=== PATIENT | male | born 1965 | race Two or more races ===

== ENCOUNTER 2021-04-25 09:57 | Emergency (ER) | payer BC, OTHER ==
[~2021-04-25] VITALS: Ht 170.2 cm; Wt 167.4 kg
[2021-04-25] MEDS ORDERED: cloNIDine HCL 0.1 MG TAB PO ONE (10:30)
[2021-04-25] MEDS ORDERED: LORazepam 0.5 MG TAB PO ONE (10:30)
[2021-04-25 10:55] LABS: Basophils # (auto) 0 10 ^3/uL (0-0.2); Basophils % (auto) 0.5 % (0.0-2.0); Eosinophils # (auto) 0.1 10 ^3/uL (0-0.8); Eosinophils % (auto) 1.6 % (0.0-7.0); Hematocrit 45.8 % (41.0-53.0); Hemoglobin 16.1 g/dL (13.5-17.5); Lymphocytes % (auto) 30.1 % (10.0-50.0); Mean Corpuscular Hemoglobin 33.6 pg (28.0-32.0); Mean Corpuscular Hgb Conc. 35.1 g/dL (32.0-36.0); Mean Corpuscular Volume 95.6 fL (80.0-100.0); Monocytes # (auto) 0.6 10 ^3/uL (0-1.3); Monocytes % (auto) 9.5 % (0.0-12.0); Neutrophils # (auto) 3.8 10 ^3/uL (1.6-8.6); Neutrophils % (auto) 58.3 % (37.0-80.0); Nucleated Red Blood Cells % 0.1 %; Red Blood Cells 4.79 10^6/uL (4.5-5.90); Red Cell Distribution Width 14.5 % (11.8-14.3); White Blood Cell 6.5 10^3/uL (4.4-10.8)
[2021-04-25 11:17] LABS: Albumin 3.5 g/dL (3.4-5.0); Calcium 8.2 mg/dL (8.5-10.1); Potassium 3.9 mmol/L (3.5-5.1)
[2021-04-25 11:27] LABS: BUN/Creatinine Ratio 14.1; Bilirubin, Total 0.5 mg/dL (0.2-1.0)
[2021-04-25 14:49] LABS: Urine Bacteria NONE SEEN /hpf (None Seen); Urine Blood Negative /uL (Negative); Urine Mucus FEW (None Seen); Urine WBC 1 /hpf (0 - 3)
[2021-04-25 16:45] VITALS: BP 106/52
== END 2021-04-25 16:46 | disposition home or self-care (01) ==
LOC: ER 09:57
DX: R07.89 Other chest pain (principal); F41.9 Anxiety disorder, unspecified; I10 Essential (primary) hypertension
CPT/HCPCS: 36415; 71045; 80053; 81001; 83880; 84484; 85025; 93005

== ENCOUNTER 2021-10-08 11:10 | Inpatient (IN) | payer BC ==
[~2021-10-08] VITALS: Ht 170.2 cm; Wt 164.2 kg
[2021-10-08 12:21] LABS: Eosinophils # (auto) 0.1 10 ^3/uL (0-0.8); Mean Corpuscular Hemoglobin 35.1 pg (28.0-32.0); Monocytes # (auto) 0.8 10 ^3/uL (0-1.3); White Blood Cell 8.1 10^3/uL (4.4-10.8)
[2021-10-08 12:22] LABS: Basophils # (auto) 0.2 10 ^3/uL (0-0.2); Eosinophils % (auto) 1.7 % (0.0-7.0); Hemoglobin 16.8 g/dL (13.5-17.5); Lymphocytes # (auto) 1.8 10 ^3/uL (0.4-5.4); Lymphocytes % (auto) 22.3 % (10.0-50.0); Mean Corpuscular Volume 100.3 fL (80.0-100.0); Monocytes % (auto) 9.8 % (0.0-12.0); Neutrophils # (auto) 5.2 10 ^3/uL (1.6-8.6); Neutrophils % (auto) 64.2 % (37.0-80.0); Nucleated Red Blood Cells % 0.1 %; Red Blood Cells 4.79 10^6/uL (4.5-5.90); Red Cell Distribution Width 14.2 % (11.8-14.3)
[2021-10-08 12:25] LABS: Urine Bacteria NONE SEEN /hpf (None Seen); Urine Blood Negative /uL (Negative); Urine Mucus FEW (None Seen); Urine Specific Gravity 1.028 (1.001-1.035); Urine WBC 2 /hpf (0 - 3)
[2021-10-08 13:07] LABS: Albumin 3.7 g/dL (3.4-5.0); BUN/Creatinine Ratio 10.4; Bilirubin, Total 0.8 mg/dL (0.2-1.0); Calcium 8.7 mg/dL (8.5-10.1); Potassium 3.9 mmol/L (3.5-5.1); Total Protein 7.3 g/dL (6.4-8.2)
[2021-10-08] MEDS ORDERED: SODIUM CHLORIDE 0.9% 1,000 ML IV ONE ×2 (13:30→15:45)
[2021-10-08] MEDS ORDERED: SODIUM CHLORIDE 0.9% 500 ML IVB ONE ×2 (13:30→15:45)
[2021-10-08 13:56] LABS: Magnesium 2.5 mg/dL (1.6-2.6)
[2021-10-08] MEDS ORDERED: IOHEXOL 300 MG/ML 100ML BOTTLE IJ ONE (14:53)
[2021-10-08] MEDS ORDERED: MORPHINE SULFATE INJ 2 MG/ml SYRG IV ONE (16:15)
[2021-10-08] MEDS ORDERED: METOCLOPRAMIDE HCL 5MG/ml INJ 2ml VIAL IV ONE (16:15)
[2021-10-08] MEDS ORDERED: LACTATED RINGER'S 1,000 ML IV ONE (17:45)
[2021-10-08] MEDS ORDERED: NITROGLYCERIN 0.4 MG SL TAB SL PRN (17:45)
[2021-10-08] MEDS ORDERED: MORPHINE SULFATE INJ 2 MG/ml SYRG IV PRN ×2 (17:45→22:30)
[2021-10-08] MEDS ORDERED: HYDROcodone-ACET 5/325MG TAB PO PRN (22:30)
[2021-10-08] MEDS ORDERED: ONDANSETRON HCL 4 MG/2 ML VIAL IV PRN (22:30)
[2021-10-08] MEDS ORDERED: LORazepam 2MG/ML-1ML VIAL IV PRN (22:30)
[2021-10-08] MEDS ORDERED: hydrALAZINE HCL 20 MG/ML VL IV PRN (22:30)
[2021-10-08] MEDS ORDERED: DOCUSATE SOD 100 MG CAP PO PRN (22:30)
[2021-10-08] MEDS ORDERED: SODIUM CHLORIDE 0.9% 1,000 ML IV SCH (22:30)
[2021-10-08] MEDS ORDERED: PANTOPRAZOLE 40 MG/10 ML VIAL INJ IV ONE (22:30)
[2021-10-08] MEDS ORDERED: LORazepam 0.5 MG TAB PO PRN (22:30)
[2021-10-08] MEDS ORDERED: THIAMINE 100mg/ml INJ (200mg/2ml VIAL) IV ONE (22:30)
[2021-10-09] VITALS (9 sets, daily range): BP systolic 129–154; BP diastolic 73–90
[2021-10-09 00:54] LABS: INR 1.04 (0.9-1.15); Partial Thromboplastin Time 27.4 sec (23.6-33.0)
[2021-10-09 07:26] LABS: Basophils # (auto) 0 10 ^3/uL (0-0.2); Basophils % (auto) 0.4 % (0.0-2.0); Eosinophils # (auto) 0.1 10 ^3/uL (0-0.8); Eosinophils % (auto) 1.6 % (0.0-7.0); Hemoglobin 15.5 g/dL (13.5-17.5); Mean Corpuscular Hgb Conc. 35.3 g/dL (32.0-36.0); Red Blood Cells 4.34 10^6/uL (4.5-5.90)
[2021-10-09 07:28] LABS: Hematocrit 43.8 % (41.0-53.0); Lymphocytes # (auto) 1.9 10 ^3/uL (0.4-5.4); Lymphocytes % (auto) 33.1 % (10.0-50.0); Mean Corpuscular Hemoglobin 35.6 pg (28.0-32.0); Monocytes # (auto) 0.7 10 ^3/uL (0-1.3); Monocytes % (auto) 11.8 % (0.0-12.0); Neutrophils # (auto) 3.1 10 ^3/uL (1.6-8.6); Neutrophils % (auto) 53.1 % (37.0-80.0); Nucleated Red Blood Cells % 0.1 %; Red Cell Distribution Width 14.2 % (11.8-14.3); White Blood Cell 5.8 10^3/uL (4.4-10.8)
[2021-10-09 07:36] LABS: INR 1.01 (0.9-1.15); Partial Thromboplastin Time 27.2 sec (23.6-33.0)
[2021-10-09 08:48] LABS: Potassium 3.9 mmol/L (3.5-5.1)
[2021-10-09 09:05] LABS: Albumin 3.2 g/dL (3.4-5.0); Bilirubin, Total 1.3 mg/dL (0.2-1.0); CRP High Sensitivity 0.25 mg/dL (< 0.3); Calcium 8.2 mg/dL (8.5-10.1); Magnesium 2.2 mg/dL (1.6-2.6); Phosphorus 3.3 mg/dL (2.5-4.90); Total Protein 6.4 g/dL (6.4-8.2); Uric Acid 6.6 mg/dL (3.5-7.2)
[2021-10-09 09:13] LABS: Thyroid Stimulating Hormone 3.02 uIU/mL (0.358-3.74)
[2021-10-09] MEDS: FOLIC ACID 1 MG TAB PO SCH (10:13)
[2021-10-09] MEDS: MULTIPLE VITAMINS W/ MINERALS TAB PO SCH (10:13)
[2021-10-09] MEDS: THIAMINE HCL 100 MG TAB PO SCH (10:13)
[2021-10-09] MEDS: PANTOPRAZOLE 40 MG/10 ML VIAL INJ IV SCH (10:13)
[2021-10-09] MEDS: ENOXAPARIN SOD 40 MG/0.4 ML SYRINGE SC SCH (10:14)
[2021-10-09] MEDS: SODIUM CHLORIDE 0.9% 1,000 ML IV SCH (15:56)
[2021-10-09] MEDS ORDERED: TAMSULOSIN HYDROCHLORIDE 0.4 MG CAP PO SCH (18:00)
[2021-10-10 05:31] VITALS: BP 137/77
[2021-10-10 05:37] LABS: Magnesium 2.2 mg/dL (1.6-2.6); Potassium 3.8 mmol/L (3.5-5.1)
[2021-10-10 09:00] VITALS: BP 110/67
[2021-10-10] MEDS: PANTOPRAZOLE 40 MG/10 ML VIAL INJ IV SCH (09:53)
[2021-10-10] MEDS: THIAMINE HCL 100 MG TAB PO SCH (09:53)
[2021-10-10] MEDS: FOLIC ACID 1 MG TAB PO SCH (09:53)
[2021-10-10] MEDS: SODIUM CHLORIDE 0.9% 1,000 ML IV SCH (09:54)
[2021-10-10] MEDS: ENOXAPARIN SOD 40 MG/0.4 ML SYRINGE SC SCH (09:54)
[2021-10-10] MEDS: MULTIPLE VITAMINS W/ MINERALS TAB PO SCH (09:54)
[2021-10-10 13:00] VITALS: BP 134/88
== END 2021-10-10 15:39 | disposition home or self-care (01) | DRG 439 ==
LOC: ER 11:10 → OVERFLOW 17:37 → WEST WING 22:52
PROVIDERS: ADMIT Hospitalist; ATTEND Internal Medicine
PROC: 5A09357 Assistance with Respiratory Ventilation, Less than 24 Consecutive Hours, Continuous Positive Airway Pressure (ICD-10-PCS; principal; 2021-10-09)
DX: K85.20 Alcohol induced acute pancreatitis without necrosis or infection (principal); Z68.43 Body mass index [BMI] 50.0-59.9, adult; K42.9 Umbilical hernia without obstruction or gangrene; K76.0 Fatty (change of) liver, not elsewhere classified; F10.10 Alcohol abuse, uncomplicated; D75.89 Other specified diseases of blood and blood-forming organs; I10 Essential (primary) hypertension; Z20.822 Contact with and (suspected) exposure to COVID-19; E66.01 Morbid (severe) obesity due to excess calories; E78.5 Hyperlipidemia, unspecified; K21.9 Gastro-esophageal reflux disease without esophagitis; N40.0 Benign prostatic hyperplasia without lower urinary tract symptoms; K29.70 Gastritis, unspecified, without bleeding; K70.9 Alcoholic liver disease, unspecified; Z79.899 Other long term (current) drug therapy
CPT/HCPCS: 36415; 71046; 74177; 76705; 80053; 80061; 81001; 82150; 82247; 82550; 82728; 83036; 83615; 83690; 83735; 83880; 84100; 84132; 84439; 84443; 84484; 84550; 85025; 85379; 85610; 85652; 85730; 86141; 87040; 87086; 93005; 94660; 96360; 96361; C9113; G0378

== ENCOUNTER 2022-12-25 09:15 | Emergency (ER) | payer BC ==
[~2022-12-25] VITALS: Ht 167.6 cm; Wt 158.9 kg
[2022-12-25 10:09] VITALS: BP 115/102; PULSE 78; RESP 18; O2SAT 98
[2022-12-25] MEDS ORDERED: ACETAMINOPHEN 500 MG TAB PO ONE (10:15)
== END 2022-12-25 11:43 | disposition home or self-care (01) ==
LOC: ER 09:15
DX: M23.8X2 Other internal derangements of left knee (principal); M24.172 Other articular cartilage disorders, left ankle; F41.9 Anxiety disorder, unspecified; M19.90 Unspecified osteoarthritis, unspecified site; I10 Essential (primary) hypertension; F10.90 Alcohol use, unspecified, uncomplicated; Y90.0 Blood alcohol level of less than 20 mg/100 ml
CPT/HCPCS: 73700

== ENCOUNTER 2023-12-04 21:39 | Inpatient (IN) | payer BC ==
[~2023-12-04] VITALS: Ht 165.1 cm; Wt 155.0 kg
[2023-12-04 22:02] LABS: Basophils # (auto) 0.1 10 ^3/uL (0-0.2); Basophils % (auto) 1.2 % (0.0-2.0); Eosinophils # (auto) 0.1 10 ^3/uL (0-0.8); Hematocrit 48.7 % (41.0-53.0); Hemoglobin 17.3 g/dL (13.5-17.5); Lymphocytes # (auto) 2.7 10 ^3/uL (0.4-5.4); Lymphocytes % (auto) 25.6 % (10.0-50.0); Mean Corpuscular Hemoglobin 36.1 pg (28.0-32.0); Mean Corpuscular Hgb Conc. 35.5 g/dL (32.0-36.0); Mean Corpuscular Volume 101.7 fL (80.0-100.0); Monocytes # (auto) 0.9 10 ^3/uL (0-1.3); Monocytes % (auto) 8.9 % (0.0-12.0); Neutrophils # (auto) 6.7 10 ^3/uL (1.6-8.6); Neutrophils % (auto) 63.3 % (37.0-80.0); Nucleated Red Blood Cells % 0.2 %; Red Blood Cells 4.79 10^6/uL (4.5-5.90); Red Cell Distribution Width 13.6 % (11.8-14.3); White Blood Cell 10.6 10^3/uL (4.4-10.8)
[2023-12-04 22:30] LABS: Alanine Aminotransferase 19 U/L (7-40); Albumin 4.1 g/dL (3.2-4.8); Alkaline Phosphatase 127 U/L (46-116); Anion Gap 9 (5-15); Aspartate Aminotransferase 23 U/L (13-40); BUN/Creatinine Ratio 10.1 (10.0-20.0); Bilirubin, Total 1.2 mg/dL (0.2-1.0); Blood Urea Nitrogen 10 mg/dL (9-23); Calcium 9.2 mg/dL (8.7-10.4); Carbon Dioxide 26 mmol/L (20-30); Chloride 104 mmol/L (98-107); Glucose 104 mg/dL (74-106); Magnesium 1.7 mg/dL (1.6-2.6); Potassium 3.1 mmol/L (3.5-5.1); Sodium 139 mmol/L (136-145)
[2023-12-04 22:36] LABS: INR 1.03 (0.9-1.15); Partial Thromboplastin Time 28.9 SEC (24.5-34.5); Prothrombin Time 10.9 sec (9.3-11.8)
[2023-12-05] VITALS (8 sets, daily range): BP systolic 120–140; BP diastolic 73–82; PULSE 62–87; RESP 16–20; TEMP 97.5–98.4; O2SAT 92–95
[2023-12-05] MEDS: chlordiazePOXIDE HCL 25 MG CAP PO SCH ×2 (00:06→10:44)
[2023-12-05] MEDS ORDERED: TEMAZEPAM 15 MG CAP PO PRN (01:15)
[2023-12-05] MEDS ORDERED: NITROGLYCERIN 0.4 MG SL TAB SL PRN (01:15)
[2023-12-05] MEDS ORDERED: MORPHINE SULFATE INJ 2 MG/ml SYRG IV PRN (01:15)
[2023-12-05] MEDS ORDERED: ACETAMINOPHEN 325 MG TAB PO PRN (01:15)
[2023-12-05] MEDS ORDERED: HYDROcodone-ACET 5/325MG TAB PO PRN (01:15)
[2023-12-05] MEDS ORDERED: ONDANSETRON HCL 4 MG/2 ML VIAL IV PRN (01:15)
[2023-12-05] MEDS: POTASSIUM CHL 20 Meq TABLET PO ONE ×2 (02:28→18:56)
[2023-12-05] MEDS ORDERED: FURO1TAB31 PO (05:53)
[2023-12-05] MEDS ORDERED: GABA-1250 PO (05:53)
[2023-12-05] MEDS ORDERED: ESCI5TAB PO (05:53)
[2023-12-05] MEDS ORDERED: APIX5TAB PO (05:53)
[2023-12-05] MEDS ORDERED: ATEN50TA PO (05:53)
[2023-12-05] MEDS: FOLIC ACID 1 MG TAB PO SCH (10:44)
[2023-12-05] MEDS: THIAMINE HCL 100 MG TAB PO SCH (10:44)
[2023-12-05] MEDS: ATENOLOL 25 MG TAB PO SCH (10:45)
[2023-12-05] MEDS: AMIODARONE HCL 200 MG TAB PO SCH (10:45)
[2023-12-05] MEDS: SERTRALINE HCL 50 MG TAB PO SCH (10:46)
[2023-12-05] MEDS: APIXABAN 5 MG TAB PO SCH (10:47)
[2023-12-05] MEDS: GABAPENTIN 300 MG CAP PO SCH (10:47)
[2023-12-05 16:19] LABS: Basophils # (auto) 0 10 ^3/uL (0-0.2); Basophils % (auto) 0.7 % (0.0-2.0); Eosinophils # (auto) 0.1 10 ^3/uL (0-0.8); Mean Corpuscular Volume 101.9 fL (80.0-100.0); Neutrophils # (auto) 3.7 10 ^3/uL (1.6-8.6); White Blood Cell 6.7 10^3/uL (4.4-10.8)
[2023-12-05 16:22] LABS: Eosinophils % (auto) 1.3 % (0.0-7.0); Hematocrit 44.6 % (41.0-53.0); Lymphocytes # (auto) 2.1 10 ^3/uL (0.4-5.4); Lymphocytes % (auto) 31.8 % (10.0-50.0); Mean Corpuscular Hemoglobin 36.5 pg (28.0-32.0); Mean Corpuscular Hgb Conc. 35.8 g/dL (32.0-36.0); Monocytes # (auto) 0.8 10 ^3/uL (0-1.3); Monocytes % (auto) 11.4 % (0.0-12.0); Neutrophils % (auto) 54.8 % (37.0-80.0); Nucleated Red Blood Cells % 0.3 %; Red Blood Cells 4.38 10^6/uL (4.5-5.90); Red Cell Distribution Width 13.8 % (11.8-14.3)
[2023-12-05 16:47] LABS: Alanine Aminotransferase 18 U/L (7-40); Albumin 3.8 g/dL (3.2-4.8); Alkaline Phosphatase 105 U/L (46-116); Anion Gap 8 (5-15); Aspartate Aminotransferase 17 U/L (13-40); BUN/Creatinine Ratio 11.6 (10.0-20.0); Bilirubin, Total 1.1 mg/dL (0.2-1.0); Blood Urea Nitrogen 11 mg/dL (9-23); Calcium 9.3 mg/dL (8.7-10.4); Carbon Dioxide 27 mmol/L (20-30); Chloride 103 mmol/L (98-107); Potassium 3.1 mmol/L (3.5-5.1); Sodium 138 mmol/L (136-145); Total Protein 6.2 g/dL (5.7-8.2)
[2023-12-05 16:58] LABS: Glucose 112 mg/dL (74-106)
[2023-12-05] MEDS ORDERED: ESCI1TAB36 PO (17:31)
[2023-12-05] MEDS ORDERED: ALPR0.5T7 PO (17:31)
[2023-12-05] MEDS ORDERED: AMIO200T33 PO (17:31)
[2023-12-05] MEDS ORDERED: MOME1AER3 IN (17:31)
[2023-12-05] MEDS ORDERED: OMEP1CAP70 PO (17:31)
[2023-12-06] VITALS (11 sets, daily range): BP systolic 112–155; BP diastolic 70–88; PULSE 63–88; RESP 16–21; TEMP 97.3–98.1; O2SAT 93–97
[2023-12-06 06:16] LABS: Alanine Aminotransferase 15 U/L (7-40); Albumin 3.6 g/dL (3.2-4.8); Alkaline Phosphatase 97 U/L (46-116); Anion Gap 8 (5-15); Aspartate Aminotransferase 18 U/L (13-40); BUN/Creatinine Ratio 10.1 (10.0-20.0); Blood Urea Nitrogen 10 mg/dL (9-23); Calcium 8.9 mg/dL (8.7-10.4); Carbon Dioxide 27 mmol/L (20-30); Chloride 105 mmol/L (98-107); Glucose 99 mg/dL (74-106); Potassium 3.4 mmol/L (3.5-5.1); Sodium 140 mmol/L (136-145)
[2023-12-06 06:17] LABS: Basophils # (auto) 0 10 ^3/uL (0-0.2); Bilirubin, Total 1.2 mg/dL (0.2-1.0); Eosinophils # (auto) 0.1 10 ^3/uL (0-0.8); Lymphocytes # (auto) 2.3 10 ^3/uL (0.4-5.4); Monocytes # (auto) 0.7 10 ^3/uL (0-1.3); Total Protein 6.2 g/dL (5.7-8.2)
[2023-12-06 06:19] LABS: Basophils % (auto) 0.5 % (0.0-2.0); Eosinophils % (auto) 1.4 % (0.0-7.0); Hematocrit 44.8 % (41.0-53.0); Lymphocytes % (auto) 31.4 % (10.0-50.0); Mean Corpuscular Hemoglobin 36.6 pg (28.0-32.0); Mean Corpuscular Hgb Conc. 35.7 g/dL (32.0-36.0); Mean Corpuscular Volume 102.4 fL (80.0-100.0); Monocytes % (auto) 9.5 % (0.0-12.0); Neutrophils # (auto) 4.2 10 ^3/uL (1.6-8.6); Neutrophils % (auto) 57.2 % (37.0-80.0); Nucleated Red Blood Cells % 0.3 %; Red Blood Cells 4.37 10^6/uL (4.5-5.90); Red Cell Distribution Width 13.6 % (11.8-14.3); White Blood Cell 7.3 10^3/uL (4.4-10.8)
[2023-12-06] MEDS: chlordiazePOXIDE HCL 25 MG CAP PO SCH (09:21)
[2023-12-07] VITALS (12 sets, daily range): BP systolic 108–127; BP diastolic 70–84; PULSE 58–79; RESP 17–20; TEMP 97.4–98.5; O2SAT 92–98
[2023-12-07 05:48] LABS: Basophils # (auto) 0 10 ^3/uL (0-0.2); Eosinophils # (auto) 0.1 10 ^3/uL (0-0.8); Mean Corpuscular Hemoglobin 36.6 pg (28.0-32.0); Monocytes # (auto) 0.8 10 ^3/uL (0-1.3); Nucleated Red Blood Cells % 0.1 %
[2023-12-07 05:53] LABS: Basophils % (auto) 0.4 % (0.0-2.0); Eosinophils % (auto) 1.6 % (0.0-7.0); Hematocrit 45.6 % (41.0-53.0); Hemoglobin 16.1 g/dL (13.5-17.5); Lymphocytes # (auto) 2.3 10 ^3/uL (0.4-5.4); Lymphocytes % (auto) 29.9 % (10.0-50.0); Mean Corpuscular Hgb Conc. 35.3 g/dL (32.0-36.0); Mean Corpuscular Volume 103.5 fL (80.0-100.0); Monocytes % (auto) 10.6 % (0.0-12.0); Neutrophils # (auto) 4.4 10 ^3/uL (1.6-8.6); Neutrophils % (auto) 57.5 % (37.0-80.0); Red Cell Distribution Width 13.8 % (11.8-14.3); White Blood Cell 7.7 10^3/uL (4.4-10.8)
[2023-12-07 06:11] LABS: Alanine Aminotransferase 18 U/L (7-40); Alkaline Phosphatase 95 U/L (46-116); Anion Gap 7 (5-15); BUN/Creatinine Ratio 10.5 (10.0-20.0); Blood Urea Nitrogen 9 mg/dL (9-23); Calcium 9.1 mg/dL (8.7-10.4); Carbon Dioxide 27 mmol/L (20-30); Chloride 106 mmol/L (98-107); Glucose 92 mg/dL (74-106); Potassium 3.6 mmol/L (3.5-5.1); Sodium 140 mmol/L (136-145)
[2023-12-07 06:12] LABS: Albumin 3.7 g/dL (3.2-4.8); Aspartate Aminotransferase 18 U/L (13-40)
[2023-12-07] MEDS: chlordiazePOXIDE HCL 25 MG CAP PO SCH (06:14)
[2023-12-08] VITALS (12 sets, daily range): BP systolic 103–127; BP diastolic 67–86; PULSE 67–80; RESP 16–21; TEMP 97.4–98.4; O2SAT 95–100
[2023-12-09] VITALS (14 sets, daily range): BP systolic 95–137; BP diastolic 63–97; PULSE 60–84; RESP 14–22; TEMP 97.7–98.7; O2SAT 95–96
[2023-12-09] MEDS: MIDAZOLAM HCL 2MG/2ML 2ml VIAL (1mg/ml) IV ONE ×2 (09:00→09:10)
[2023-12-09] MEDS: LIDOCAINE VISCOUS 2% 15ML UD PO ONE (09:04)
[2023-12-09] MEDS: fentaNYL CITRATE 100 MCG/2 ML VL IV ONE (09:08)
[2023-12-09] MEDS: diphenhdrAMINE HCL 50 MG/1 ML VL IV ONE (09:15)
[2023-12-09] MEDS ORDERED: THIA100T13 PO (11:26)
[2023-12-09] MEDS ORDERED: CHL25C PO (11:26)
[2023-12-09] MEDS ORDERED: MULT-1018 PO (11:26)
[2023-12-09] MEDS ORDERED: FOLI-119 PO (11:26)
== END 2023-12-09 17:36 | disposition home or self-care (01) | DRG 309 ==
LOC: ER 21:39 → TELE 12-05 01:13 → TELE-E-ADS 12-05 03:54
PROVIDERS: ADMIT Nurse Practitioner; ATTEND Family Medicine
PROC: 5A09357 Assistance with Respiratory Ventilation, Less than 24 Consecutive Hours, Continuous Positive Airway Pressure (ICD-10-PCS; 2023-12-06)
PROC: 5A09357 Assistance with Respiratory Ventilation, Less than 24 Consecutive Hours, Continuous Positive Airway Pressure (ICD-10-PCS; 2023-12-07)
PROC: 5A09357 Assistance with Respiratory Ventilation, Less than 24 Consecutive Hours, Continuous Positive Airway Pressure (ICD-10-PCS; 2023-12-08)
PROC: 5A2204Z Restoration of Cardiac Rhythm, Single (ICD-10-PCS; principal; 2023-12-09)
PROC: B24BZZ4 Ultrasonography of Heart with Aorta, Transesophageal (ICD-10-PCS; 2023-12-09)
DX: I48.19 Other persistent atrial fibrillation (principal); F10.230 Alcohol dependence with withdrawal, uncomplicated; Z68.43 Body mass index [BMI] 50.0-59.9, adult; E66.01 Morbid (severe) obesity due to excess calories; E87.6 Hypokalemia; I50.9 Heart failure, unspecified; I11.0 Hypertensive heart disease with heart failure; I25.10 Atherosclerotic heart disease of native coronary artery without angina pectoris; I34.0 Nonrheumatic mitral (valve) insufficiency; Z79.01 Long term (current) use of anticoagulants; Z82.3 Family history of stroke; Z79.899 Other long term (current) drug therapy; Y90.9 Presence of alcohol in blood, level not specified
CPT/HCPCS: 36415; 71045; 80053; 83735; 83880; 84484; 85025; 85610; 85730; 93005; 93306; 94660; G0378; J2250

== ENCOUNTER 2024-06-19 17:51 | Inpatient (IN) | payer BC ==
[~2024-06-19] VITALS: Ht 170.2 cm; Wt 171.0 kg
[~2024-06-19 17:51] MED LIST: ALPR0.5T7 PO; AMIO200T33 PO; APIX5TAB PO; ATEN50TA PO; CHL25C PO; ESCI1TAB36 PO; FOLI-119 PO; FURO1TAB31 PO; GABA-1250 PO; MOME1AER3 IN; MULT-1018 PO; OMEP1CAP70 PO; THIA100T13 PO
--- NOTE | 2024-06-19 18:25 | DVH ---
Procedure: CT CT AB PEL WO CON-NO ORAL OR IV 06/19/2024 05:58 PM Indication: rectal bleed Comparison Study: None Technique: Axial images were obtained and reformatted in coronal and sagittal planes. All CT scans at this medical facility are performed using dose modulation techniques as appropriate t o a performed exam including the following: Automated exposure control was utilized; adjustment of th e MA and/or KV according to patient size; and use of iterative reconstruction technique. CT Dose: CTDI volume is 27.88 mGy. Dose-length product is 1630.36 mGy*cm FINDINGS: Lower Chest: Coronary artery cardiac valve calcification noted. Mild bibasilar dependent atelectasis. Hepatobiliary: Hepatomegaly and hepatic steatosis. Spleen: Unremarkable. Pancreas: Unremarkable. Adrenal Glands: Unremarkable. tract: The kidneys are normal in size bilaterally without hydronephrosis or nephrolithiasis. The urinary bladder is unremarkable. GI tract: The stomach is grossly normal in appearance. No evidence of small bowel obstruction. Scatte red colonic diverticula are noted without evidence of diverticulitis. No significant mural thickening . No pericolonic inflammation. Liquid stool is seen in rectal lumen. The appendix is normal. Lymphatics: No mesenteric, retroperitoneal or periportal lymphadenopathy. Vasculature: Aorta is normal in caliber. Scattered calcified plaques are noted. Pelvic Organs: Unremarkable Bones/soft tissues: Moderate fat containing umbilical hernia Other: None. IMPRESSION: 1. Liquid stool seen in the rectal lumen but there are no signs of colitis. No discrete mass is ident ified on this unenhanced study. No pericolonic inflammation. Few colonic diverticula are seen but t here is no evidence of diverticulitis. Further evaluation with CT angiogram or tagged RBC scan could be completed to better evaluate for GI bleed.
--- NOTE | 2024-06-19 18:43 | ECG ---
[facility] Test Date: 2024-06-19 Test Time: 18:38:47 Pat Name: ARELIS SOLORZANO Department: ER Room: Gender: M Game Room Attendant: JAVY : 1965 Requested By: ERIC AREVALO Order Number: [id number] Reading MD: Measurements Intervals [place] Rate: 83 P: 1 OK: 212 QRS: -69 QRSD: 99 T: 33 QT: 403 QTc: 474 Interpretive Statements Sinus rhythm Prolonged OK interval Left anterior fascicular block Abnormal R-wave progression, late transition Borderline T abnormalities, anterior leads Please click the below link to view image of tracing.
--- NOTE | 2024-06-19 18:45 | ED.PDOC ---
GI ASSESSMENT HPI Comments HPI: Poor Historian. 58-year-old male presents to emergency department for evaluation of bright red blood diarrhea with the associated nausea. This has been ongoing intermittently for some time but got worse in the last few days. He was seen at [facility] and had some labs done few months ago. Patient also complains of mild periumbilical discomfort. Patient is on Eliquis. Past Medical History:, hernia, hypertension, obesity, atrial fibrillation, anxiety, chronic back pain Past Surgical History: Colonoscopy two years ago. Back epidural REVIEW OF SYSTEMS: CONSTITUTIONAL: Denies acute: fever, diaphoresis, chills, generalized weakness. HEAD: Denies acute: headache, photophobia Eyes: Denies acute: Double vision, vision loss, eye pain, eye discharge. EARS: Denies acute: tinnitus, hearing loss, ear discharge, ear pain, THROAT: Denies acute: sore throat, swelling, difficulty swallowing , pain with swallowing, change in voice. NECK: Denies acute: neck pain, neck swelling, stiff neck. HEART: Denies acute : chest pain, palpitations, LUNGS: Denies acute: SOB, wheezing, cough, hemoptysis ABDOMEN: Denies acute: Vomiting, melena , hematemesis, SKIN: Denies acute: rash, redness, lesions, itchiness. EXTREMITIES: Denies acute: calf pain, numbness, tingling, weakness, denies pain in extremity. Denies acute: Low back pain. Neuro: Denies acute: focal neurological deficit, motor or sensory focal neurological deficit, tremors, seizure like activity, confusion, dizziness, change in mental status, loss of bowel or bladder function, cauda equina like symptoms. : Denies acute: dysuria, hematuria, flank pain, increase in urinary frequency. PSYCH: Denies acute: hallucination, suicidal ideation, homicidal ideation. PHYSICAL EXAM: General: no acute distress, awake and alert. Head: normocephalic, atraumatic. Neck: supple, trachea is midline, no swelling. Throat: Normal phonation. Eyes:, no erythema, no purulent discharge, no proptosis, no icterus. Heart: regular rate, regular rhythm, no significant murmur appreciated. Lungs: no apparent respiratory distress, Able to speak in full sentences. No wheezing, no rhonchi, no crackles. No stridors Clear to auscultation bilaterally. Abdomen: Minimal periumbilical tender to palpation, non distended, soft, no guarding, no rebound, + bowel sounds. Morbidly obese Neuro: Awake, Alert, oriented to name, self, situation, follows commands GCS=15. Speech is normal. Skin: no petechia, no purpura, no cyanosis, non-pale, not jaundice. Lower extremities: --no - Pitting edema no deformity, no focal swelling, no calf TTP. Makes eye contact. moves all four extremities. Face: no apparent facial droop. Ambulating in the ED independently. Uses crutches. ED COURSE: Time Seen by MD: 17:58 Primary Care Provider: MAGGY Reviewed Notes: Nurses Notes, Allergies Allergies: Coded Allergies: NO KNOWN ALLERGIES (Unverified , 04/25/21) Home Meds Active Scripts Chlordiazepoxide Hcl (Librium) 25 Mg Cp, 25 MG PO TID, #14 CAP Prov:NEAL LARSON MD 12/09/23 Multiple Vitamin (Multivitamins) Tab, 1 TAB PO DAILY, #30 TAB 5 Refills Prov:NEAL LARSON MD 12/09/23 Folic Acid (Folic Acid) 1 Mg Tab, 1 MG PO DAILY, #30 TAB Prov:NEAL LARSON MD 12/09/23 Thiamine HCl (Thiamine Hydrochloride) 100 Mg Tab, 100 MG PO DAILY, #30 TAB Prov:NEAL LARSON MD 12/09/23 Reported Medications Alprazolam (Alprazolam) 0.5 Mg Tab, 1 TAB PO BID PRN for ANXIETY, #60 TAB 12/05/23 Mometasone Furoate-Formoterol (Dulera) 1 Aer Aer, 1 PUFF IN BID, AER 12/05/23 Amiodarone Hcl (Amiodarone Hcl) 200 Mg Tab, 200 MG PO DAILY 12/05/23 Omeprazole (Omepraz[address] Dr) 20 Mg Cap, 20 MG PO QAM, CAP 12/05/23 Escitalopram Oxalate (ESCITALOPRAM OXALATE) 10 Mg Tab, 10 MG PO DAILY, TAB 12/05/23 Apixaban Base (ELIQUIS) 5 Mg Tab, 5 MG PO BID, TAB 12/05/23 Atenolol (Atenolol) 50 Mg Tab, 50 MG PO DAILY for 30 Days, MG 12/05/23 Furosemide (Lasix) 40 Mg Tab, 40 MG PO QAM PRN for EDEMA, TAB 12/05/23 Gabapentin (Gabapentin) 300 Mg Cap, 300 MG PO BID for 30 Days, MG 12/05/23 Information Source: Patient Past Medical History PAST MEDICAL HISTORY: AFIB, Anxiety, Arthritis, HTN Surgical History: Denies all surgeries Family History Family History: Reviewed,noncontributory to illness Social History Smoker: Non-Smoker Alcohol: Heavy Drugs: Denies Drug Use Lives In: Home Was a procedure done? Was a procedure done?: No GI differential Dx Differential Diagnosis: Other (Diverticulitis, colitis, fistula, neoplasm, hem orrhoids, anal fissures, constipation, Crohn's disease, ulcerative colitis) X-Ray, Labs, Meds, VS Vital Signs Date Time Temp Pulse Resp B/P (MAP) Pulse Ox O2 Delivery O2 Flow Rate FiO2 06/19/24 20:00 97.7 78 20 151/91 (111) 95 97.7 06/19/24 20:00 Room Air* 0 21 06/19/24 18:38 83 06/19/24 18:15 98.1 84 24 169/98 (121) 93 Lab Test 06/19/24 18:54 06/19/24 18:35 Range/Units White Blood Count 9.5 4.4-10.8 10^3/uL Red Blood Count 4.48 L 4.5-5.90 10^6/uL Hemoglobin 15.9 13.5-17.5 g/dL Hematocrit 46.5 41.0-53.0 % Mean Corpuscular Volume 103.8 H 80.0-100.0 fL Mean Corpuscular Hemoglobin 35.5 H 28.0-32.0 pg Mean Corpuscular Hemoglobin Concent 34.3 32.0-36.0 g/dL Red Cell Distribution Width 13.5 11.8-14.3 % Platelet Count 171 140-450 10^3/uL Mean Platelet Volume 7.4 6.9-10.8 fL Neutrophils (%) (Auto) 66.3 37.0-80.0 % Lymphocytes (%) (Auto) 20.9 10.0-50.0 % Monocytes (%) (Auto) 10.4 0.0-12.0 % Eosinophils (%) (Auto) 1.7 0.0-7.0 % Basophils (%) (Auto) 0.7 0.0-2.0 % Neutrophils # (Auto) 6.3 1.6-8.6 10 ^3/uL Lymphocytes # (Auto) 2.0 0.4-5.4 10 ^3/uL Monocytes # (Auto) 1.0 0-1.3 10 ^3/uL Eosinophils # (Auto) 0.2 0-0.8 10 ^3/uL Basophils # (Auto) 0.1 0-0.2 10 ^3/uL Nucleated Red Blood Cells 0.0 % Prothrombin Time 10.2 9.3-11.8 sec Prothrombin Time INR 0.96 0.9-1.15 Activated Partial Thromboplast Time 28.2 24.5-34.5 SEC Sodium Level 139 136-145 mmol/L Potassium Level 3.8 3.5-5.1 mmol/L Chloride Level 105 98-107 mmol/L Carbon Dioxide Level 26 20-31 mmol/L Anion Gap 8 5-15 Blood Urea Nitrogen 12 9-23 mg/dL Creatinine 1.03 0.700-1.30 mg/dL Glomerular Filtration Rate Calc 85 >90 mL/min BUN/Creatinine Ratio 11.7 10.0-20.0 Serum Glucose 103 74-106 mg/dL Lactic Acid Level 1.3 0.4-2.0 mmol/L Calcium Level 9.9 8.7-10.4 mg/dL Total Bilirubin 0.9 0.2-1.0 mg/dL Aspartate Amino Transferase (AST) 28 13-40 U/L Alanine Aminotransferase (ALT) 34 7-40 U/L Alkaline Phosphatase 94 46-116 U/L Total Protein 7.0 5.7-8.2 g/dL Albumin 4.6 3.2-4.8 g/dL Urine Color Yellow Yellow Urine Clarity Clear Clear Urine pH 5.5 5.0-9.0 Urine Specific [place] 1.027 1.001-1.035 Urine Protein Negative Negative Urine Ketones Negative Negative Urine Blood Negative Negative /uL Urine Nitrite Negative Negative Urine Bilirubin Negative Negative Urine Urobilinogen Normal Negative mg/dL Urine Leukocyte Esterase Negative Negative /uL Urine RBC 3 0 - 3 /hpf Urine Microscopic WBC 2 0-3 /HPF Urine Squamous Epithelial Cells Few <5 /hpf Urine Bacteria None seen None Seen /hpf Urine Mucus Few None Seen Urine Glucose Normal Normal mg/dL [address] [address] Ph: [phone] DIAGNOSTIC IMAGING Diagnostic Imaging Report : [id number] Signed PATIENT: ARELIS SOLORZANO JR ACCT: [id number] UNIT: [id number] : 1965 LOC: ER ROOM / BED: / AGE / SEX: 58 / M ADM STATUS: REG ER SERVICE [id number] ORDERING PHYSICIAN: ERIC AREVALO DO PROCEDURE(s): ABPL - CT AB PEL WO CON-NO ORAL OR IV REASON: rectal bleed ORDER NUMBER(s): [id number], ACCESSION NUMBER(s): [id number] Procedure: CT CT AB PEL WO CON-NO ORAL OR IV 06/19/2024 05:58 PM Indication: rectal bleed Comparison Study: None Technique: Axial images were obtained and reformatted in coronal and sagittal planes. All CT scans at this medical facility are performed using dose modulation techniques as appropriate to a performed exam including the following: Automated exposure control was utilized; adjustment of the MA and/or KV according to patient size; and use of iterative reconstruction technique. CT Dose: CTDI volume is 27.88 mGy. Dose-length product is 1630.36 mGy*cm FINDINGS: Lower Chest: Coronary artery cardiac valve calcification noted. Mild bibasilar dependent atelectasis. Hepatobiliary: Hepatomegaly and hepatic steatosis. Spleen: Unremarkable. Pancreas: Unremarkable. Adrenal Glands: Unremarkable. tract: The kidneys are normal in size bilaterally without hydronephrosis or nephrolithiasis. The urinary bladder is unremarkable. GI tract: The stomach is grossly normal in appearance. No evidence of small bowel obstruction. Scattered colonic diverticula are noted without evidence of diverticulitis. No significant mural thickening. No pericolonic inflammation. Liquid stool is seen in rectal lumen. The appendix is normal. Lymphatics: No mesenteric, retroperitoneal or periportal lymphadenopathy. Vasculature: Aorta is normal in caliber. Scattered calcified plaques are noted. Pelvic Organs: Unremarkable Bones/soft tissues: Moderate fat containing umbilical hernia Other: None. IMPRESSION: 1. Liquid stool seen in the rectal lumen but there are no signs of colitis. No discrete mass is identified on this unenhanced study. No pericolonic inflammation. Few colonic diverticula are seen but there is no evidence of diverticulitis. Further evaluation with CT angiogram or tagged RBC scan could be completed to better evaluate for GI bleed. ATED BY: AFSHAN BUI MD DICTATED DATE/TIME: 06/19/241821 SIGNED BY: AFSHAN BUI MD SIGNED DATE/TIME: 06/19/241821 CC: Time of 1ST Reevaluation: 20:35 Reevaluation 1ST: Unchanged Patient Education/Counseling: Diagnosis, Treatment Family Education/Counseling: No Family Present Comments Patient presented with the above HPI.---rectal bleeding--workup was initiated. patient was found with the above mentioned diagnosis. the following medications were ordered: please refer to order lists of meds and tests obtained by myself Dr. Arevalo. Patient ED course and VS have been stabilized. Patient has been reassessed in the ED and remained in a stable condition. Pertinent incidental findings were discussed with the patient and/or family. Patient/family voices understanding and is agreeable with plan. Patient has been observed in the ED adequate length of time to insure improvement/stability. Escalation of care considered: Consideration of escalation to observation or admission Patient was ADMITTED to the medicine team for further evaluation and treatment of their presentation. All the reports of any imaging studies that were ordered by myself were reviewed by myself. Departure 1 Departure Time of Disposition: 19:30 Impression: Primary Impression: GI bleed Disposition: ADMITTED INPATIENT Admit to: [facility] Condition: Guarded Discharged With: Self Critical Care Note Critical Care Time?: No Heart Score Heart Score: Heart Score Response (Comments) Value History N/A 0 EKG N/A 0 Age N/A 0 Risk Factors N/A 0 Troponin N/A 0 Total 0 I personally scribed for ERIC AREVALO DO ([email or web address]) on 06/19/24 at 20:52. Electronically submitted by Alok Castañeda ([email or web address]). ERIC AREVALO DO Jun 19, 2024 18:45
[2024-06-19 19:16] LABS: Eosinophils # (auto) 0.2 10 ^3/uL (0-0.8); Eosinophils % (auto) 1.7 % (0.0-7.0); Hemoglobin 15.9 g/dL (13.5-17.5)
[2024-06-19 19:17] LABS: Basophils # (auto) 0.1 10 ^3/uL (0-0.2); Basophils % (auto) 0.7 % (0.0-2.0); Hematocrit 46.5 % (41.0-53.0); Lymphocytes % (auto) 20.9 % (10.0-50.0); Mean Corpuscular Hemoglobin 35.5 pg (28.0-32.0); Mean Corpuscular Hgb Conc. 34.3 g/dL (32.0-36.0); Mean Corpuscular Volume 103.8 fL (80.0-100.0); Monocytes % (auto) 10.4 % (0.0-12.0); Neutrophils # (auto) 6.3 10 ^3/uL (1.6-8.6); Neutrophils % (auto) 66.3 % (37.0-80.0); Platelet Count (auto) 171 10^3/uL (140-450); Red Blood Cells 4.48 10^6/uL (4.5-5.90); Red Cell Distribution Width 13.5 % (11.8-14.3); White Blood Cell 9.5 10^3/uL (4.4-10.8)
[2024-06-19 19:30] LABS: Alanine Aminotransferase 34 U/L (7-40); Albumin 4.6 g/dL (3.2-4.8); Alkaline Phosphatase 94 U/L (46-116); Anion Gap 8 (5-15); Aspartate Aminotransferase 28 U/L (13-40); BUN/Creatinine Ratio 11.7 (10.0-20.0); Blood Urea Nitrogen 12 mg/dL (9-23); Calcium 9.9 mg/dL (8.7-10.4); Carbon Dioxide 26 mmol/L (20-31); Chloride 105 mmol/L (98-107); Glucose 103 mg/dL (74-106); Potassium 3.8 mmol/L (3.5-5.1); Sodium 139 mmol/L (136-145)
[2024-06-19 19:31] LABS: Bilirubin, Total 0.9 mg/dL (0.2-1.0); INR 0.96 (0.9-1.15); Partial Thromboplastin Time 28.2 SEC (24.5-34.5); Prothrombin Time 10.2 sec (9.3-11.8)
[2024-06-19 20:18] LABS: Urine Bacteria None Seen /hpf (None Seen)
[2024-06-19 20:38] LABS: Urine Blood Negative /uL (Negative); Urine Clarity Clear (Clear); Urine Color Yellow (Yellow); Urine Mucus FEW (None Seen); Urine Protein, UAD Negative (Negative); Urine Specific Gravity 1.027 (1.001-1.035); Urine Squamous Epithelial Cell FEW /hpf (<5); Urine Urobilinogen Normal (Negative); Urine WBC 2 /HPF (0-3); Urine pH 5.5 (5.0-9.0)
[2024-06-19] MEDS ORDERED: ACETAMINOPHEN 325 MG TAB PO PRN (21:15)
[2024-06-19] MEDS: PANTOPRAZOLE 40 MG/10 ML VIAL INJ IV ONE (21:28)
[2024-06-19] MEDS: PANTOPRAZOLE 40 MG/10 ML VIAL INJ IV SCH (21:59)
[2024-06-19] MEDS: SODIUM CHLORIDE 0.9% 1,000 ML IV ONE (22:00)
[2024-06-19] MEDS: metroNIDAZOLE 500MG/100ML 100 ML IV SCH (22:23)
[2024-06-19] MEDS: CIPROFLOXACIN 400MG/200ML 200 ML IV SCH (22:23)
--- NOTE | 2024-06-19 22:33 | DVHHPRES ---
History of Present Illness Resident Creating Document: FELICIANO REILLY RESIDENT Reason for Visit: GI bleeding History of Present Illness A 58Y male with PMHx atrial fibrillation, lumbar disc hernia, HTN, alcoholism who came due to diarrhea and bloody stools, according to him, he is being having loose stools for a weeks, sometimes mixed with blood but today he saw bright red blood when he was cleaning himself. Patient states that he had these episodes like a year ago but he thought was hemorrhoids, stated that he had a colonoscopy 2 y ago which was positive for polyps. PMHx atrial fibrillation, lumbar disc hernia, HTN, alcoholism Home meds: apixaban, escitalopram, multaq, bupropion, gabapentin Social: he lives at home, he states he drink 1 pint of vodka everyday Review of Systems Constitutional: No: Fever, Chills, Sweats, Weakness, Malaise, Other Eyes: No: Pain, Vision change, Conjunctivae inflammation, Eyelid inflammation, Other, Redness ENT: No: Ear pain, Ear discharge, Nose pain, Nose discharge, Nose congestion, Mouth pain, Mouth swelling, Throat pain, Throat swelling, Other Respiratory: No: Cough, Dry, Shortness of breath, SOB with excertion, Wheezing, Hemoptysis, Pleuritic Pain, Sputum, Wheezing, Other Cardiovascular: No: Chest Pain, Palpitations, Orthopnea, Paroxysmal Noc. Dyspnea, Edema, Lt Headedness, Other Gastrointestinal: No: Nausea, Vomiting, Abdominal Pain, Diarrhea, Constipation, Melena, Hematochezia, Other Genitourinary: No Dysuria, No Frequency, No Incontinence, No Hematuria, No Retention, No Other Musculoskeletal: No: other, neck pain, shoulder pain, arm pain, back pain, hand pain, leg pain, foot pain Skin: No: Rash, Lesions, Jaundice, Bruising, Other Neurological: No: Weakness, Numbness, Incoordination, Change in speech, Confusion, Seizures, Other Allergies: Coded Allergies: NO KNOWN ALLERGIES (Unverified , 04/25/21) Medications Current Medications Medications Dose Ordered Sig/Fox Route Start Time Stop Time Status Last Admin Dose Admin Pantoprazole Sodium 40 mg BID IV 06/19/24 22:00 Acetaminophen 325 mg Q8HR PRN PO 06/19/24 21:15 Exam Vital Signs Vital Signs Date Time Temp Pulse Resp B/P (MAP) Pulse Ox O2 Delivery O2 Flow Rate FiO2 06/19/24 20:00 97.7 78 20 151/91 (111) 95 97.7 06/19/24 20:00 Room Air* 0 21 General Appearance: Alert, Oriented X3, Cooperative HEENT: Atraumatic, PERRLA, EOMI Respiratory: Clear to auscultation, Normal air movement Cardiovascular: Regular rate, Normal S1 Abdominal: Other (umbilical hernia, reductable, mild tendernss, rectal exam no stool in the rectal vault, no bleeding ) Extremities: No edema Skin: No rashes, No breakdown Neuro: Normal gait, Normal speech Psych/Mental Status: Mental status NL, Mood NL Labs/Xrays Labs Test 06/19/24 18:54 06/19/24 18:35 Range/Units White Blood Count 9.5 4.4-10.8 10^3/uL Red Blood Count 4.48 L 4.5-5.90 10^6/uL Hemoglobin 15.9 13.5-17.5 g/dL Hematocrit 46.5 41.0-53.0 % Mean Corpuscular Volume 103.8 H 80.0-100.0 fL Mean Corpuscular Hemoglobin 35.5 H 28.0-32.0 pg Mean Corpuscular Hemoglobin Concent 34.3 32.0-36.0 g/dL Red Cell Distribution Width 13.5 11.8-14.3 % Platelet Count 171 140-450 10^3/uL Mean Platelet Volume 7.4 6.9-10.8 fL Neutrophils (%) (Auto) 66.3 37.0-80.0 % Lymphocytes (%) (Auto) 20.9 10.0-50.0 % Monocytes (%) (Auto) 10.4 0.0-12.0 % Eosinophils (%) (Auto) 1.7 0.0-7.0 % Basophils (%) (Auto) 0.7 0.0-2.0 % Neutrophils # (Auto) 6.3 1.6-8.6 10 ^3/uL Lymphocytes # (Auto) 2.0 0.4-5.4 10 ^3/uL Monocytes # (Auto) 1.0 0-1.3 10 ^3/uL Eosinophils # (Auto) 0.2 0-0.8 10 ^3/uL Basophils # (Auto) 0.1 0-0.2 10 ^3/uL Nucleated Red Blood Cells 0.0 % Prothrombin Time 10.2 9.3-11.8 sec Prothrombin Time INR 0.96 0.9-1.15 Activated Partial Thromboplast Time 28.2 24.5-34.5 SEC Sodium Level 139 136-145 mmol/L Potassium Level 3.8 3.5-5.1 mmol/L Chloride Level 105 98-107 mmol/L Carbon Dioxide Level 26 20-31 mmol/L Anion Gap 8 5-15 Blood Urea Nitrogen 12 9-23 mg/dL Creatinine 1.03 0.700-1.30 mg/dL Glomerular Filtration Rate Calc 85 >90 mL/min BUN/Creatinine Ratio 11.7 10.0-20.0 Serum Glucose 103 74-106 mg/dL Lactic Acid Level 1.3 0.4-2.0 mmol/L Calcium Level 9.9 8.7-10.4 mg/dL Total Bilirubin 0.9 0.2-1.0 mg/dL Aspartate Amino Transferase (AST) 28 13-40 U/L Alanine Aminotransferase (ALT) 34 7-40 U/L Alkaline Phosphatase 94 46-116 U/L Total Protein 7.0 5.7-8.2 g/dL Albumin 4.6 3.2-4.8 g/dL Urine Color Yellow Yellow Urine Clarity Clear Clear Urine pH 5.5 5.0-9.0 Urine Specific [place] 1.027 1.001-1.035 Urine Protein Negative Negative Urine Ketones Negative Negative Urine Blood Negative Negative /uL Urine Nitrite Negative Negative Urine Bilirubin Negative Negative Urine Urobilinogen Normal Negative mg/dL Urine Leukocyte Esterase Negative Negative /uL Urine RBC 3 0 - 3 /hpf Urine Microscopic WBC 2 0-3 /HPF Urine Squamous Epithelial Cells Few <5 /hpf Urine Bacteria None seen None Seen /hpf Urine Mucus Few None Seen Urine Glucose Normal Normal mg/dL Assessment/Plan Assessment/Plan #GI bleeding? #Acute possible bacterial gastroenteritis #Paroxysmal Atrial fibrillation #Alcoholism #Hypertensive crisis #Diverticulosis CT scan: Liquid stool seen in the rectal lumen but there are no signs of co litis. No discrete mass is identified on this unenhanced study. No pericolonic inflammation. Few colonic diverticula are seen but there is no evidence of diverticulitis. Further evaluation with CT angiogram or tagged RBC scan could be completed to better evaluate for GI bleed. Nov 2023: ECHO: Normal left ventricular size and dimension. Normal left ventricular systolic function estimated ejection fraction 65%. Could not assess diastolic function as patient was in atrial fibrillation. Normal right ventricular size and dimension. Normal left ventricular systolic function. Borderline upper normal limit of her right and left atrial size and dimension. Normal aortic valve structure function. Normal mitral valve structure and function. Normal tricuspid valve structure and. The pulmonary valve is grossly normal. No pericardial effusion. Admit Cardiac diet Med surg Now in sinus rhythm Hold on anticoagulation due to possible GI bleeding Cipro/metronidazole due to possible bacterial gastroenteritis NS 75cc/h Start losartan due to hypertension CIWA score 2 points, no need of medication for alcohol withdrawal now Case discussed with Dr Cross Time spent on care 23 min Plan discussed with: Patient, Other (rn) My Orders Orders - FELICIANO REILLY Procedure Category Date Status Time Admit ADMIT 06/19/24 Transmitted 21:14 Pantoprazole PHA 06/19/24 In Process (Protonix) 22:00 Acetaminophen Tablet PHA 06/19/24 In Process (Tylenol Tablet) 21:15 Stool Occult Blood LAB 06/19/24 Logged 21:14 Sodium Chloride 0.9% PHA 06/19/24 In Process 21:15 Stool Bacterial DASHA 06/19/24 Logged Culture 22:07 Stool Wbc LAB 06/19/24 Logged 22:07 Metronidazole PHA 06/19/24 In Process 500mg/100ml (Flagyl 22:15 Ciprofloxacin PHA 06/19/24 In Process 400mg/200ml (Cipro Iv) 22:15 Date of Service: Jun 19, 2024 Billing Provider: YECENIA CROSS MD Common Visit Codes: 10005-[id number] INP/OBS CARE (HIGH) FELICIANO REILLY Jun 19, 2024 22:33 YECENIA CROSS MD Jun 22, 2024 10:13
[2024-06-20] VITALS (8 sets, daily range): BP systolic 146–147; BP diastolic 81–87; PULSE 74–103; RESP 13–20; TEMP 97.5; O2SAT 94–95
[2024-06-20 08:01] LABS: Basophils # (auto) 0 10 ^3/uL (0-0.2); Eosinophils # (auto) 0.2 10 ^3/uL (0-0.8); Mean Corpuscular Volume 104.1 fL (80.0-100.0); Neutrophils # (auto) 4.9 10 ^3/uL (1.6-8.6); Nucleated Red Blood Cells % 0.1 %
[2024-06-20 08:04] LABS: Basophils % (auto) 0.6 % (0.0-2.0); Hemoglobin 15.3 g/dL (13.5-17.5); Lymphocytes # (auto) 1.8 10 ^3/uL (0.4-5.4); Lymphocytes % (auto) 23.1 % (10.0-50.0); Mean Corpuscular Hemoglobin 35.3 pg (28.0-32.0); Mean Corpuscular Hgb Conc. 33.9 g/dL (32.0-36.0); Monocytes % (auto) 12.4 % (0.0-12.0); Neutrophils % (auto) 61.9 % (37.0-80.0); Platelet Count (auto) 161 10^3/uL (140-450); Red Blood Cells 4.32 10^6/uL (4.5-5.90); Red Cell Distribution Width 13.7 % (11.8-14.3); White Blood Cell 7.9 10^3/uL (4.4-10.8)
[2024-06-20] MEDS: LOSARTAN POTASSIUM 50 MG TAB PO SCH (08:19)
[2024-06-20 08:27] LABS: Alanine Aminotransferase 29 U/L (7-40); Albumin 4.3 g/dL (3.2-4.8); Alkaline Phosphatase 88 U/L (46-116); Anion Gap 11 (5-15); Aspartate Aminotransferase 26 U/L (13-40); BUN/Creatinine Ratio 12.3 (10.0-20.0); Bilirubin, Total 0.9 mg/dL (0.2-1.0); Blood Urea Nitrogen 13 mg/dL (9-23); Calcium 9.4 mg/dL (8.7-10.4); Carbon Dioxide 25 mmol/L (20-31); Chloride 103 mmol/L (98-107); Glucose 98 mg/dL (74-106); Potassium 3.8 mmol/L (3.5-5.1); Sodium 139 mmol/L (136-145); Total Protein 6.5 g/dL (5.7-8.2)
[2024-06-20] MEDS ORDERED: LOSARTAN POTASSIUM 50 MG TAB PO SCH (10:00)
[2024-06-20] MEDS ORDERED: ATEN-60 PO (11:31)
[2024-06-20] MEDS ORDERED: GABA-1250 PO (11:32)
[2024-06-20] MEDS ORDERED: DRON400T PO (11:35)
[2024-06-20] MEDS ORDERED: BUPR150T18 PO (11:35)
[2024-06-20] MEDS ORDERED: ESCI1TAB37 PO (11:35)
[2024-06-20] MEDS ORDERED: NALT50TA27 PO (11:37)
[2024-06-20] MEDS ORDERED: FUROSEMIDE 40 MG TAB PO PRN (13:00)
--- NOTE | 2024-06-20 14:08 | DVHPN2 ---
Subjective STATES STOOL CONSISTENCY HAS CHANGED FOR PAST WEEK/NO BM AFTER admission Changes from previous H/P or p: No Changes Eyes: No Pain, No Vision change, No Conjunctivae inflammation, No Eyelid inflammation, No Other, No Redness ENT: No Ear pain, No Ear discharge, No Nose pain, No Nose discharge, No Nose congestion, No Mouth pain, No Mouth swelling, No Throat pain, No Throat swelling, No Other Cardiovascular: No Chest Pain, No Palpitations, No Orthopnea, No Paroxysmal Noc. Dyspnea, No Edema, No Lt Headedness, No Other Respiratory: No Cough, No Dry, No Shortness of breath, No SOB with excertion, No Wheezing, No Hemoptysis, No Pleuritic Pain, No Sputum, No Other Gastrointestinal: No Nausea, No Vomiting, No Abdominal Pain, No Diarrhea, No Constipation, No Melena, No Hematochezia, No Other Genitourinary: No Dysuria, No Frequency, No Incontinence, No Hematuria, No Retention, No Other Musculoskeletal: No other, No neck pain, No shoulder pain, No arm pain, No back pain, No hand pain, No leg pain, No foot pain Skin: No Rash, No Lesions, No Jaundice, No Bruising, No Other Objective Vitals Vital Signs Date Time Temp Pulse Resp B/P (MAP) Pulse Ox O2 Delivery O2 Flow Rate FiO2 06/20/24 12:00 98.3 89 16 128/73 (91) 94 98.3 06/20/24 07:30 Room Air* 0 21 General Appearance: Alert, Oriented X3, Cooperative, No acute distress Lungs: Clear to auscultation Cardiovascular: Regular rate, Normal S1, Normal S2 Abdomen: Normal bowel sounds, Soft, No tenderness, No hepatospenomegaly Musculoskeletal: Normal sensory function, Normal motor function Neuro: Normal gait, Normal speech, Strength at 5/5 X4 ext, Normal tone, S ensation intact, Cranial nerves 3-12 NL Psych/Mental Status: Mental status NL, Mood NL Medications Current Medications Medications Dose Ordered Sig/Fox Route Start Time Stop Time Status Last Admin Dose Admin Pantoprazole Sodium 40 mg BID IV 06/19/24 22:00 06/20/24 10:18 40 MG Acetaminophen 325 mg Q8HR PRN PO 06/19/24 21:15 Metronidazole 100 ml @ 100 mls/hr Q8HR IV 06/19/24 22:15 06/20/24 06:18 100 MLS/HR Ciprofloxacin 200 ml @ 200 mls/hr BID IV 06/19/24 22:15 06/20/24 10:18 200 MLS/HR Losartan Potassium 50 mg DAILY PO 06/20/24 05:45 06/20/24 08:19 50 MG Apixaban 5 mg BID PO 06/20/24 22:00 Furosemide 40 mg QAM PRN PO 06/20/24 13:00 Gabapentin 300 mg BID PO 06/20/24 22:00 Multivitamins 1 tab DAILY PO 06/21/24 10:00 Atenolol 50 mg DAILY PO 06/21/24 10:00 Patient Own Medication 50 mg DAILY PO 06/21/24 10:00 Citalopram Hydrobromide 40 mg DAILY PO 06/21/24 10:00 Folic Acid 1 mg DAILY PO 06/21/24 10:00 Patient Own Medication 50 mg DAILY PO 06/21/24 10:00 Laboratory Results Laboratory Tests 06/20/24 07:25 Chemistry Test 06/19/24 18:54 06/20/24 07:25 Albumin 4.6 g/dL (3.2-4.8) 4.3 g/dL (3.2-4.8) Calcium Level 9.9 mg/dL (8.7-10.4) 9.4 mg/dL (8.7-10.4) Total Protein 7.0 g/dL (5.7-8.2) 6.5 g/dL (5.7-8.2) Coagulation Test 06/19/24 18:54 Prothrombin Time 10.2 sec (9.3-11.8) Prothrombin Time INR 0.96 (0.9-1.15) Activated Partial Thromboplast Time 28.2 SEC (24.5-34.5) LFT Test 06/19/24 18:54 06/20/24 07:25 Alanine Aminotransferase (ALT) 34 U/L (7-40) 29 U/L (7-40) Alkaline Phosphatase 94 U/L (46-116) 88 U/L (46-116) Aspartate Amino Transferase (AST) 28 U/L (13-40) 26 U/L (13-40) Total Bilirubin 0.9 mg/dL (0.2-1.0) 0.9 mg/dL (0.2-1.0) Urinalysis Test 06/19/24 18:35 Urine Color Yellow (Yellow) Urine Clarity Clear (Clear) Urine pH 5.5 (5.0-9.0) Urine Specific [place] 1.027 (1.001-1.035) Urine Protein Negative (Negative) Urine Ketones Negative (Negative) Urine Blood Negative /uL (Negative) Urine Nitrite Negative (Negative) Urine Bilirubin Negative (Negative) Urine Urobilinogen Normal mg/dL (Negative) Urine Leukocyte Esterase Negative /uL (Negative) Urine RBC 3 /hpf (0 - 3) Urine Microscopic WBC 2 /HPF (0-3) Urine Squamous Epithelial Cells Few /hpf (<5) Urine Bacteria None seen /hpf (None Seen) Urine Mucus Few (None Seen) Urine Glucose Normal mg/dL (Normal) Labs and/or images reviewed: Labs reviewed by me, Image(s) reviewed by me Assessment/Plan Assessment/Plan gi blled- ? hemmoroids vs diverticulois/ischemic colitis less likely.//last colonoscopy 2022 normal atrial fibrillation- rate controlled/on eliquis- on hold degerative disc disese luis antonio obesity Plan discussed with: Patient, Other My Orders Orders - NATHALIA PRESCOTT MD Procedure Category Date Status Time Apixaban (Eliquis) PHA 06/20/24 Transmitted 14:15 Date of Service: Jun 20, 2024 Billing Provider: NATHALIA PRESCOTT MD Common Visit Codes: [id number] INP/OBS CARE(MOD) NATHALIA PRESCOTT MD Jun 20, 2024 14:07
[2024-06-20] MEDS: APIXABAN 5 MG TAB PO SCH (14:15)
[2024-06-20] MEDS: GABAPENTIN 300 MG CAP PO SCH (21:17)
[2024-06-20] MEDS ORDERED: APIXABAN 5 MG TAB PO SCH (22:00)
[2024-06-21] VITALS (7 sets, daily range): BP systolic 123–159; BP diastolic 71–95; PULSE 86–95; RESP 18–19; TEMP 97.5–97.9; O2SAT 92–97
[2024-06-21 06:55] LABS: Basophils # (auto) 0 10 ^3/uL (0-0.2); Basophils % (auto) 0.4 % (0.0-2.0); Eosinophils # (auto) 0.1 10 ^3/uL (0-0.8); Hemoglobin 15.1 g/dL (13.5-17.5); Monocytes # (auto) 0.8 10 ^3/uL (0-1.3)
[2024-06-21 06:57] LABS: Eosinophils % (auto) 1.5 % (0.0-7.0); Hematocrit 44.9 % (41.0-53.0); Lymphocytes # (auto) 1.4 10 ^3/uL (0.4-5.4); Lymphocytes % (auto) 19.5 % (10.0-50.0); Mean Corpuscular Hemoglobin 35.2 pg (28.0-32.0); Mean Corpuscular Hgb Conc. 33.6 g/dL (32.0-36.0); Mean Corpuscular Volume 104.5 fL (80.0-100.0); Monocytes % (auto) 10.6 % (0.0-12.0); Neutrophils # (auto) 4.9 10 ^3/uL (1.6-8.6); Nucleated Red Blood Cells % 0.3 %; Platelet Count (auto) 155 10^3/uL (140-450); Red Blood Cells 4.29 10^6/uL (4.5-5.90); Red Cell Distribution Width 13.7 % (11.8-14.3); White Blood Cell 7.2 10^3/uL (4.4-10.8)
[2024-06-21] MEDS: BUPROPION HCL 150 MG PO SCH (10:00)
[2024-06-21] MEDS: NALTREXONE HYDROCHLORIDE 50 MG PO SCH (10:00)
[2024-06-21] MEDS: CITALOPRAM HYDROBR 20 MG TAB PO SCH (10:39)
[2024-06-21] MEDS: MULTIPLE VITAMIN TAB PO SCH (10:40)
[2024-06-21] MEDS: FOLIC ACID 1 MG TAB PO SCH (10:40)
[2024-06-21] MEDS: ATENOLOL 25 MG TAB PO SCH (10:42)
[2024-06-21] MEDS ORDERED: CIPR500T4 PO (14:27)
[2024-06-21] MEDS ORDERED: PANT40T PO (14:28)
== END 2024-06-21 18:28 | disposition home or self-care (01) | DRG 378 ==
LOC: ER 17:51 → OVERFLOW 21:14 → CENTRAL 06-20 16:54
PROVIDERS: ADMIT Internal Medicine; ATTEND Internal Medicine
PROC: 5A09357 Assistance with Respiratory Ventilation, Less than 24 Consecutive Hours, Continuous Positive Airway Pressure (ICD-10-PCS; principal; 2024-06-20)
DX: K57.31 Diverticulosis of large intestine without perforation or abscess with bleeding (principal); I16.9 Hypertensive crisis, unspecified; Z68.43 Body mass index [BMI] 50.0-59.9, adult; E66.9 Obesity, unspecified; G89.29 Other chronic pain; G47.33 Obstructive sleep apnea (adult) (pediatric); I10 Essential (primary) hypertension; I48.0 Paroxysmal atrial fibrillation; F41.9 Anxiety disorder, unspecified; Z79.01 Long term (current) use of anticoagulants; Z79.899 Other long term (current) drug therapy
CPT/HCPCS: 36415; 74176; 80053; 81001; 82270; 83605; 84132; 85025; 85048; 85610; 85730; 87045; 87427; 93005; 94660; 96361; 96374; 99291; G0378; J2470; J3490